=== PATIENT | male | born 1980 | race Caucasian/White ===

== ENCOUNTER 2018-04-28 19:24 | Emergency (ER) | payer SELFPAY | END 2018-04-28 22:46 | disposition home or self-care (01) | LOC: FTE 19:24 | DX: M25.562 Pain in left knee (principal) | CPT/HCPCS: 73562; 99283-25 ==

== ENCOUNTER 2018-08-04 08:45 | Emergency (ER) | payer SELFPAY ==
[2018-08-04] MEDS: LIDOCAINE 1% (MPF) 5 ML VIAL INJ (09:05)
== END 2018-08-04 10:14 | disposition home or self-care (01) ==
LOC: FTE 08:45
DX: S61.012A Laceration without foreign body of left thumb without damage to nail, initial encounter (principal); S60.411A Abrasion of left index finger, initial encounter; W26.8XXA Contact with other sharp object(s), not elsewhere classified, initial encounter; Y92.9 Unspecified place or not applicable
CPT/HCPCS: 12001; 73140; 99283-25

== ENCOUNTER 2018-12-09 19:04 | Emergency (ER) | payer MEDICAID ==
[2018-12-09] MEDS: IBUPROFEN 600 MG TAB PO (20:33)
[2018-12-09] MEDS: HYDROCODONE/APAP (10/325) TAB PO (20:34)
[2018-12-09 20:43] LABS: ADD UMIC NO; UR ASCORBIC ACID NEGATIVE (NEGATIVE); UR BILIRUBIN (Dip) NEGATIVE (NEGATIVE); UR BLOOD (Dip) NEGATIVE (NEGATIVE); UR CLARITY CLEAR (CLEAR); UR COLOR YELLOW (YELLOW); UR GLUCOSE (Dip) NEGATIVE (NEGATIVE); UR KETONES (Dip) NEGATIVE (NEGATIVE); UR LEUKOCYTE ESTERASE (Dip) NEGATIVE Leu/ul (NEGATIVE); UR NITRITE (Dip) NEGATIVE (NEGATIVE); UR SPECIFIC GRAVITY (Dip) 1.019 (1.003-1.030); UR TOTAL PROTEIN (Dip) NEGATIVE (NEGATIVE); UR UROBILINOGEN (Dip) NEGATIVE (NEGATIVE)
[2018-12-09] MEDS: LIDOCAINE 1% (MPF) 5 ML VIAL INJ (22:41)
[2018-12-09] MEDS: CEFTRIAXONE 250 MG INJ IM (22:41)
[2018-12-09] MEDS: AZITHROMYCIN 500 MG TAB PO (22:41)
== END 2018-12-09 22:47 | disposition home or self-care (01) ==
LOC: FTE 22:47
DX: N50.812 Left testicular pain (principal)
CPT/HCPCS: 76870; 81003; 87591; 96372; 99285-25